=== PATIENT | male | born 1935 | race Caucasian/White ===

== ENCOUNTER 2019-04-11 17:02 | Inpatient (IN) ==
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
[2019-04-11 18:40] LABS: BASO# 0.04 X1000 (0.0-0.2); BASO% 0.4 % (0.0-0.8); EOS# 0.11 X1000 (0.0-0.7); EOS% 1.2 % (0.0-10.0); HEMATOCRIT 38.6 % (42.0-52.0); HEMOGLOBIN 13.1 g/dL (14.0-18.0); IMM GRAN# 0.02 X1000 (0.0-0.04); IMM GRAN% 0.2 % (0.0-0.5); LYMPH# 1.68 X1000 (1.2-3.4); LYMPH% 18.1 % (20.5-51.1); MCHC 33.9 g/dL (33-37); MCV 91.3 FL (81-99); MONO# 1.22 X1000 (0.11-0.59); MONO% 13.1 % (1.7-9.3); NEUT# 6.23 X1000 (1.4-6.5); PLT 135 X1000 (130-400); RBC 4.23 XMIL (4.7-6.1); RDW 13.6 % (11.5-14.5)
[2019-04-11 18:48] LABS: INR 0.97; PROTIME 13.7 Seconds (11.0-16.0)
[2019-04-11 18:49] LABS: PTT 27.6 Seconds (22.3-41.8)
[2019-04-11 19:00] LABS: AGAP 10; ALB/GLOB RATIO 1.3; ALBUMIN 3.9 g/dL (3.5-5.0); ALKALINE PHOSPHATASE 71 U/L (32-122); BUN 23 mg/dL (8-22); CALCIUM 9.3 mg/dL (8.8-10.2); CHLORIDE 101 mmol/L (98-107); COSMO 274; CREATININE 0.9 mg/dL (0.7-1.2); ESTIMATED GFR > 60; GLUCOSE 102 mg/dL (70-104); POTASSIUM 4.7 mmol/L (3.5-5.1); SODIUM 135 mmol/L (136-145); TCO2 24 mmol/L (25-35)
[2019-04-11 19:01] LABS: GOT 17 U/L (10-34); GPT 11 U/L (10-44)
[2019-04-11 20:19] LABS: URINE SOURCE CLEAN CATCH
[2019-04-11 20:26] LABS: BILIRUBIN URINE NEGATIVE (NEGATIVE); BLOOD URINE LARGE (NEGATIVE); COLOR YELLOW; GLUCOSE URINE NEGATIVE (NEGATIVE); KETONE URINE 10 mg/dL (NEGATIVE); LEUKOCYTES URINE NEGATIVE (NEGATIVE); NITRITE URINE NEGATIVE (NEGATIVE); PROTEIN URINE TRACE mg/dL (NEGATIVE); TURBIDITY URINE CLEAR (CLEAR); UROBILINOGEN URINE NORMAL (NORMAL)
[2019-04-11 20:27] LABS: UR EPITHELIAL CELLS <10 /HPF (<10); URINE BACTERIA NEGATIVE /HPF; URINE RBC TNTC /HPF (<10); URINE WBC <10 /HPF (<10)
[2019-04-11 20:39] LABS: SP GRAVITY URINE 1.015
[2019-04-11] MEDS ORDERED: ZOFRAN IV PRN (22:25)
[2019-04-12] MEDS: MORPHINE IV PRN (05:25)
[2019-04-12 06:04] LABS: BASO# 0.05 X1000 (0.0-0.2); BASO% 0.6 % (0.0-0.8); EOS# 0.09 X1000 (0.0-0.7); EOS% 1.1 % (0.0-10.0); HEMATOCRIT 38.4 % (42.0-52.0); IMM GRAN# 0.02 X1000 (0.0-0.04); IMM GRAN% 0.2 % (0.0-0.5); LYMPH# 2.04 X1000 (1.2-3.4); LYMPH% 24.4 % (20.5-51.1); MCH 30.7 PG (27-31); MCHC 33.9 g/dL (33-37); MCV 90.8 FL (81-99); MONO# 0.96 X1000 (0.11-0.59); MONO% 11.5 % (1.7-9.3); MPV 12.1 FL (7.4-10.4); NEUT% 62.2 % (42.2-75.2); PLT 137 X1000 (130-400); RBC 4.23 XMIL (4.7-6.1); RDW 13.5 % (11.5-14.5); WBC 8.36 X1000 (4.8-10.8)
[2019-04-12 06:22] LABS: MAGNESIUM 2.3 mg/dL (1.5-2.7)
[2019-04-12 06:34] LABS: AGAP 16; BUN 16 mg/dL (8-22); CALCIUM 8.8 mg/dL (8.8-10.2); CHLORIDE 103 mmol/L (98-107); COSMO 279; CREATININE 0.7 mg/dL (0.7-1.2); ESTIMATED GFR > 60; GLUCOSE 104 mg/dL (70-104); SODIUM 139 mmol/L (136-145); TCO2 20 mmol/L (25-35)
[2019-04-12] MEDS ORDERED: CARDIZEM 125 MG in NS 100 ML IV SCH (06:51)
[2019-04-12] MEDS ORDERED: CARDIZEM IV ONE (06:51)
--- NOTE | 2019-04-12 07:38 | EKG Report ---
Test Performed on : 04/12/2019 04:38:43 AM Test Reason : abnormal rate Blood Pressure : / mmHG Vent. Rate : 052 BPM Atrial Rate : 052 BPM P-R Int : 160 ms QRS Dur : 092 ms QT Int : 440 ms P-R-T Axes : 072 079 091 degrees QTc Int : 409 ms Sinus bradycardia. Nonspecific T wave abnormality Abnormal ECG When compared with ECG of 11-APR-2019 18:43, (Unconfirmed) No significant change was found Confirmed by Yanique DOMINGO, Naresh Peterson ([id number]) on 04/12/2019 7:29:11 PM
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
--- NOTE | 2019-04-12 11:58 | EKG Report ---
Test Performed on : 04/12/2019 08:51:31 AM Test Reason : ICU. No order in [place] Blood Pressure : / mmHG Vent. Rate : 058 BPM Atrial Rate : 058 BPM P-R Int : 156 ms QRS Dur : 096 ms QT Int : 422 ms P-R-T Axes : 058 075 098 degrees QTc Int : 414 ms Sinus bradycardia. Voltage criteria for left ventricular hypertrophy Nonspecific T wave abnormality Abnormal ECG When compared with ECG of 12-APR-2019 06:17, (Unconfirmed) Significant changes have occurred Confirmed by Yanique DOMINGO, Naresh Peterson ([id number]) on 04/12/2019 7:29:47 PM
--- NOTE | 2019-04-12 12:12 | EKG Report ---
Test Performed on : 04/12/2019 06:16:44 AM Test Reason : Tachycardia Blood Pressure : / mmHG Vent. Rate : 138 BPM Atrial Rate : 141 BPM P-R Int : 200 ms QRS Dur : 086 ms QT Int : 264 ms P-R-T Axes : 093 080 252 degrees QTc Int : 399 ms Sinus tachycardia. Left ventricular hypertrophy with repolarization abnormality Marked ST abnormality, possible anterior subendocardial injury Abnormal ECG When compared with ECG of 12-APR-2019 04:38, (Unconfirmed) Vent. rate has increased BY [address] now depressed in Inferior leads ST now depressed in Anterolateral leads T wave inversion now evident in Inferior leads T wave inversion now evident in Anterolateral leads Confirmed by Yanique DOMINGO, Naresh Peterson ([id number]) on 04/12/2019 7:29:23 PM
--- NOTE | 2019-04-12 12:13 | EKG Report ---
Test Performed on : 04/12/2019 06:17:35 AM Test Reason : AFIB Blood Pressure : / mmHG Vent. Rate : 143 BPM Atrial Rate : 150 BPM P-R Int : 000 ms QRS Dur : 086 ms QT Int : 306 ms P-R-T Axes : 000 079 254 degrees QTc Int : 472 ms Atrial fibrillation. with rapid ventricular response. Voltage criteria for left ventricular hypertrophy Marked ST abnormality, possible inferior subendocardial injury Marked ST abnormality, possible anterolateral subendocardial injury Abnormal ECG When compared with ECG of 12-APR-2019 06:16, (Unconfirmed) Atrial fibrillation. has replaced Sinus rhythm. Confirmed by Yanique DOMINGO, Naresh Peterson ([id number]) on 04/12/2019 7:29:27 PM
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
[2019-04-12 16:28] LABS: CK INDEX 8.9 (0.0-2.5); CK-MB 18.92 ng/mL (0.0-5.0)
[2019-04-12 22:23] LABS: CK INDEX 7.5 (0.0-2.5)
[2019-04-13 03:52] LABS: BASO# 0.05 X1000 (0.0-0.2); BASO% 0.5 % (0.0-0.8); EOS# 0.22 X1000 (0.0-0.7); EOS% 2.4 % (0.0-10.0); HEMOGLOBIN 12.1 g/dL (14.0-18.0); IMM GRAN# 0.02 X1000 (0.0-0.04); IMM GRAN% 0.2 % (0.0-0.5); LYMPH# 1.59 X1000 (1.2-3.4); LYMPH% 17.3 % (20.5-51.1); MCH 30.8 PG (27-31); MCHC 33.6 g/dL (33-37); MCV 91.6 FL (81-99); MONO# 1.15 X1000 (0.11-0.59); MONO% 12.5 % (1.7-9.3); MPV 12.3 FL (7.4-10.4); NEUT# 6.15 X1000 (1.4-6.5); NEUT% 67.1 % (42.2-75.2); PLT 128 X1000 (130-400); RBC 3.93 XMIL (4.7-6.1); RDW 13.5 % (11.5-14.5); WBC 9.18 X1000 (4.8-10.8)
[2019-04-13 04:16] LABS: AGAP 7; BUN 15 mg/dL (8-22); CALCIUM 8.6 mg/dL (8.8-10.2); CHLORIDE 103 mmol/L (98-107); COSMO 275; CREATININE 0.8 mg/dL (0.7-1.2); ESTIMATED GFR > 60; GLUCOSE 136 mg/dL (70-104); POTASSIUM 4.2 mmol/L (3.5-5.1); SODIUM 136 mmol/L (136-145); TCO2 26 mmol/L (25-35)
--- NOTE | 2019-04-13 07:06 | EKG Report ---
Test Performed on : 04/13/2019 06:38:04 AM Test Reason : per MD's orders Blood Pressure : / mmHG Vent. Rate : 055 BPM Atrial Rate : 055 BPM P-R Int : 164 ms QRS Dur : 086 ms QT Int : 424 ms P-R-T Axes : 072 074 094 degrees QTc Int : 405 ms Sinus bradycardia. Nonspecific T wave abnormality Abnormal ECG When compared with ECG of 13-APR-2019 06:37, (Unconfirmed) premature atrial complexes. are no longer present Confirmed by Yanique DOMINGO, Naresh Peterson ([id number]) on 04/13/2019 3:27:37 PM
--- NOTE | 2019-04-13 09:27 | Diag Imaging Result Doc PS360 ---
CT HEAD/C-SPINE W/O CONTRAST - 04/11/2019 INDICATION: head injury/pain COMPARISON: None FINDINGS: This exam was submitted for interpretation on 04/13/2019 at 9:[address]: There is a left frontal forehead scalp soft tissue contusion. No underlying fractures. The ventricles and sulci are normal in size and contour. No intracranial mass or hemorrhage. There is mild periventricular white matter chronic microvascular disease. No soft tissue gas or foreign body. The sinuses, mastoids, and middle ears are clear. Cervical spine: There is some exaggeration of the normal cervical lordosis. No fracture or subluxation. Vertebral body heights are preserved. There is advanced disc degeneration at C5-6 and C6-7. There is also advanced multilevel facet degeneration. No central canal stenosis. IMPRESSION: 1. Small forehead scalp contusion. No intracranial injury. 2. Cervical spondylosis. No acute injury to the cervical spine. This exam was performed using automated exposure control, adjustment of mA or kV according to patient size, and/or use of iterative reconstruction technique Electronically signed by Deshawn Thomas 04/13/2019 9:24 AM
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
[2019-04-13] MEDS: MORPHINE IV PRN (19:43)
[2019-04-14 05:41] LABS: BASO# 0.04 X1000 (0.0-0.2); BASO% 0.4 % (0.0-0.8); EOS# 0.16 X1000 (0.0-0.7); EOS% 1.7 % (0.0-10.0); HEMATOCRIT 37.2 % (42.0-52.0); HEMOGLOBIN 12.5 g/dL (14.0-18.0); IMM GRAN# 0.02 X1000 (0.0-0.04); IMM GRAN% 0.2 % (0.0-0.5); LYMPH# 1.94 X1000 (1.2-3.4); LYMPH% 20.6 % (20.5-51.1); MCH 30.7 PG (27-31); MCHC 33.6 g/dL (33-37); MCV 91.4 FL (81-99); MONO# 1.45 X1000 (0.11-0.59); MONO% 15.4 % (1.7-9.3); MPV 12.4 FL (7.4-10.4); NEUT# 5.81 X1000 (1.4-6.5); NEUT% 61.7 % (42.2-75.2); PLT 141 X1000 (130-400); RBC 4.07 XMIL (4.7-6.1); RDW 13.6 % (11.5-14.5); WBC 9.42 X1000 (4.8-10.8)
[2019-04-14 06:07] LABS: AGAP 11; BUN 17 mg/dL (8-22); CALCIUM 8.9 mg/dL (8.8-10.2); CHLORIDE 104 mmol/L (98-107); COSMO 281; CREATININE 0.8 mg/dL (0.7-1.2); ESTIMATED GFR > 60; GLUCOSE 107 mg/dL (70-104); POTASSIUM 4.3 mmol/L (3.5-5.1); SODIUM 140 mmol/L (136-145); TCO2 25 mmol/L (25-35)
--- NOTE | 2019-04-14 07:14 | EKG Report ---
Test Performed on : 04/14/2019 06:40:22 AM Test Reason : PA/ASHD Blood Pressure : / mmHG Vent. Rate : 059 BPM Atrial Rate : 059 BPM P-R Int : 150 ms QRS Dur : 084 ms QT Int : 422 ms P-R-T Axes : 046 075 112 degrees QTc Int : 417 ms Sinus bradycardia. Nonspecific ST and T wave abnormality Abnormal ECG When compared with ECG of 13-APR-2019 06:38, Nonspecific T wave abnormality, improved in Lateral leads Confirmed by Yanique DOMINGO, Naresh Peterson ([id number]) on 04/14/2019 1:41:45 PM
[2019-04-14 17:29] VITALS: BP 132/76
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
--- NOTE | 2019-04-15 12:40 | ECHO REPORT ---
ORDER DATE: 04/12/2019 INTERPRETING PHYSICIAN: Garcia Vincent MD. ECHOCARDIOGRAPHIC MEASUREMENTS: 1. Interventricular septum 1.2. 2. Left ventricular posterior wall 1.0. 3. Diastolic diameter 4.0. 4. Left atrium 3.4. 5. Aorta 3.2. FINDINGS: 1. Aortic valve leaflets were calcified. 2. Mitral valve was normal. There is mitral annular calcification. 3. Tricuspid valve was normal. Technically suboptimal study. Poor acoustic window. 4. Normal left ventricular cavity size. Estimated ejection fraction of 65 to 70 percent. 5. There is moderate mitral regurgitation, mild tricuspid regurgitation. Peak velocity across the tricuspid valve was 2.3 m/sec. 6. Pulmonary artery systolic pressure of 30 mmHg. 7. Peak velocity across the aortic valve was 3.6 m/sec with a peak gradient of 53 mmHg, mean gradient of 32 mmHg. Aortic valve area of 1.2 cm2. There is moderate aortic stenosis. There is no aortic regurgitation. 8. There is no pericardial effusion. CONCLUSIONS: 1. Normal left ventricular cavity size. Estimated ejection fraction of 65 to 70 percent. There is left ventricular hypertrophy. 2. There is moderate aortic stenosis. 3. There is moderate mitral regurgitation. 4. There is no pericardial effusion. cc: Garcia Vincent MD
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
== END 2019-04-14 18:21 | disposition home or self-care (01) | DRG 605 ==
LOC: SUPCPDRO → ED 17:02 → 4N 22:12 → SUATTDRO 22:12 → ICU 04-12 06:51
PROVIDERS: ATTEND Internal Medicine
CPT/HCPCS: 70450; 71260; 72125; 74177; 80048; 80053; 80061; 81001; 82550; 82553; 83721; 83735; 84484; 85025; 85610; 85730; 86850; 86900; 86901; 93005; 93010; 93306; 99285; J2270; J2405; Q9967